=== PATIENT | male | born 1945 | race Caucasian/White ===

== ENCOUNTER 2017-08-13 07:33 | Outpatient (CLI) | payer MEDICARE, BC | END 2017-08-13 07:34 | disposition home or self-care (01) | LOC: BICULT 07:33 | PROVIDERS: ATTEND Family Medicine | DX: Z13.6 Encounter for screening for cardiovascular disorders (principal) | CPT/HCPCS: 76775 ==

== ENCOUNTER 2018-01-17 09:23 | Outpatient (CLI) | payer MEDICARE, BC ==
--- NOTE | 2018-01-19 08:31 | EKG ---
Test Reason : PREOP Blood Pressure : / mmHG Vent. Rate : 062 BPM Atrial Rate : 062 BPM P-R Int : 240 ms QRS Dur : 108 ms QT Int : 394 ms P-R-T Axes : 052 -21 016 degrees QTc Int : 399 ms Sinus rhythm with 1st degree A-V block Otherwise normal ECG When compared with ECG of 06-FEB-2012 13:09, ND interval has increased T wave amplitude has increased in Anterior leads Confirmed by JÚNIOR PERDUE ([id number]) on 01/19/2018 8:30:53 AM Referred By: ANA CRISTINA Confirmed By:JÚNIOR PERDUE
== END 2018-01-17 09:24 | disposition home or self-care (01) ==
LOC: EKG 09:23
PROVIDERS: ATTEND Urology
DX: N40.1 Benign prostatic hyperplasia with lower urinary tract symptoms (principal)
CPT/HCPCS: 93005; 93010

== ENCOUNTER 2018-01-21 14:11 | Outpatient (CLI) | payer MEDICARE, BC ==
[2018-01-21 15:37] LABS: Bilirubin Negative (Negative); Blood, Urine Negative (Negative); Clarity CLEAR (Clear); Glucose, Urine (Dipstick) Negative (Negative); Hemoglobin 14.9 g/dL (14.0-18.0); Leukocyte Negative (Negative); Mean Corpuscular HGB CONC 34.5 g/dL (32.0-36.0); Mean Corpuscular Hemoglobin 33.8 pg (27.0-31.0); Nitrite Negative (Negative); Platelet Count 195 thou/uL (130-400); Protein, Urine (Dipstick) Negative (Neg-Trace); RBC Distribution Width 10.7 % (11.5-14.5); Red Blood Cell (RBC) Count 4.41 mill/uL (4.70-6.10); Urobilinogen 0.2 mg/dL (0.2-1.0); White Blood Cell (WBC) Count 7.7 thou/uL (4.8-10.8)
[2018-01-21 15:41] LABS: Bacteria/HPF None Seen HPF (None Seen); Hyaline Casts/LPF 0-3 HYALINE CAST LPF (0-3 Hyaline); RBC/HPF 0-3 HPF (0-3); Squamous Epithelial None Seen HPF (0-3); WBC/HPF None Seen HPF (0-3)
[2018-01-21 15:57] LABS: Anion Gap 13 mmol/L (10-20); BUN (Urea Nitrogen) 20 mg/dL (8.4-25.7); Calc. Creatinine Clearance 0 mL/min (70-130); Calcium 9.5 mg/dL (7.8-10.44); Carbon Dioxide 25 mmol/L (23-31); Chloride 101 mmol/L (98-107); Estimated GFR-MDRD 78; Glucose 102 mg/dL (80-115); Sodium 135 mmol/L (136-145)
== END 2018-01-21 14:12 | disposition home or self-care (01) ==
LOC: LABBT 14:11
PROVIDERS: ATTEND Urology
DX: Z01.812 Encounter for preprocedural laboratory examination (principal); N40.1 Benign prostatic hyperplasia with lower urinary tract symptoms; R35.0 Frequency of micturition; R97.20 Elevated prostate specific antigen [PSA]; R39.14 Feeling of incomplete bladder emptying
CPT/HCPCS: 80048; 81001; 85027; 87086

== ENCOUNTER 2018-01-29 08:28 | Day surgery (SDC) | payer MEDICARE, BC ==
[2018-01-21 14:23] VITALS: BMI 28.6
[2018-01-29] MEDS ORDERED: Dexamethasone 4 mg/ml Vial ONE ×2 (09:20→09:21)
[2018-01-29] MEDS ORDERED: Levofloxacin 500 mg/D5W 100 ml Premix Bag ONE (09:20)
[2018-01-29] MEDS ORDERED: Fentanyl 100 MCG/2 ML VIAL ONE (10:37)
[2018-01-29] MEDS ORDERED: Lidocaine 1% PF 5 ML VIAL ONE (17:50)
[2018-01-29] MEDS ORDERED: PROPOFOL 200 MG/20 ML VIAL ONE ×2 (17:50)
[2018-01-29] MEDS ORDERED: Ondansetron PF 4 MG/2 ML Vial ONE (17:50)
[2018-01-29] MEDS ORDERED: ePHEDrine/0.9% NaCl/PF SYRINGE 50 mg/10 ml ONE (17:50)
--- NOTE | 2018-01-29 18:50 | OP ---
DATE OF PROCEDURE: 01/29/2018 PREOPERATIVE DIAGNOSIS: Benign prostatic hypertrophy. POSTOPERATIVE DIAGNOSIS: Benign prostatic hypertrophy. PROCEDURE: GreenLight laser vaporization of the prostate. SURGEON: Mary Jo Mercado M.D. ANESTHESIA: General with laryngeal mask airway. FINDINGS: Adequate opening up of the prostatic urethra using 128,179 joules. SPECIMEN: Prostate. BLOOD LOSS: Minimal. DRAINS REMAINING: A 20-[place] 2-way. COMPLICATIONS: No complications. INDICATIONS: The patient is a 72-year-old male who is followed in the office for BPH and already on maximum medications, but set up for definitive therapy. PROCEDURE IN DETAIL: He was brought into the room by Anesthesia, laid on the table in supine positio n. After receiving general anesthetic, his legs were placed in lithotomy position. His perineum was prepped and draped in sterile fashion. Using 22.5-[place] cystoscope and 30-degree lens, the urethra was traversed and the bladder inspected. The ureteral orifices were identified and preserved throug hout the case. The middle lobe was somewhat prominent and taken down with some chips noted. Power o f 80 was used for this and at the bladder neck. Power of 180 was used at the mid gland and near the veru again reduced power to 80. When the scope was removed initially, there was not a good stream, s o the bladder neck was reassessed and ensured to be open on the lateral edges and then the bladder wa s refilled ensuring that it was actually significantly full and when the scope was removed, a good st ream was noted. The scope was put back in and bladder decompressed. Hemostasis ensured. The scope was removed a final time and a 20-[place] catheter was placed to gravity. The patient tolerated the p rocedure well and was awakened and transferred to PACU in stable condition.
== END 2018-01-29 14:00 | disposition home or self-care (01) ==
LOC: SDC 08:28
PROVIDERS: ATTEND Urology
PROC: 0V508ZZ Destruction of Prostate, Via Natural or Artificial Opening Endoscopic (ICD-10-PCS; principal; 2018-01-29)
DX: N40.1 Benign prostatic hyperplasia with lower urinary tract symptoms (principal); R35.0 Frequency of micturition; R35.1 Nocturia; R39.11 Hesitancy of micturition; R39.14 Feeling of incomplete bladder emptying; I10 Essential (primary) hypertension; E03.9 Hypothyroidism, unspecified; E78.5 Hyperlipidemia, unspecified; N52.9 Male erectile dysfunction, unspecified; Z87.891 Personal history of nicotine dependence; Z79.82 Long term (current) use of aspirin; Z79.899 Other long term (current) drug therapy
CPT/HCPCS: 88305; J1100; J1956; J2001; J2405; J2704; J3010

== ENCOUNTER 2019-08-12 14:46 | Outpatient (CLI) | payer MEDICARE, BC ==
[~2019-08-12 14:46] MED LIST: Iopamidol-370 76% 500 ML 1 ML ONE
--- NOTE | 2019-08-12 16:31 | CT ---
CT abdomen and pelvis without and with IV contrast HISTORY: Hematuria. Incomplete bladder emptying. FINDINGS: There are 3 tiny nonspecific subpleural nodules at the partially visualized right lung base . Each renal collecting system, ureter, and urinary bladder are decompressed without stone apparent. No filling defects are evident within the urinary system on the delayed images. Small lobular homogeneous fluid density structures at the left renal hilum slightly effacing the left renal calyces. No solid masses are apparent. There is calcification within the arterial structures. No evidence of bowel obstruction or inflammation. Degenerative changes throughout the lumbar spine. IMPRESSION : No acute urinary tract abnormalities are demonstrated. Incidental note of parapelvic cysts of the lef t kidney. Atherosclerosis.
== END 2019-08-12 14:47 | disposition home or self-care (01) ==
LOC: BICCT 14:46
PROVIDERS: ATTEND Urology
DX: R31.29 Other microscopic hematuria (principal); R97.20 Elevated prostate specific antigen [PSA]; R39.14 Feeling of incomplete bladder emptying; N28.1 Cyst of kidney, acquired; I70.90 Unspecified atherosclerosis
CPT/HCPCS: 74178; Q9967

== ENCOUNTER 2019-10-22 13:02 | Outpatient (CLI) | payer MEDICARE, BC ==
--- NOTE | 2019-10-22 14:44 | MRI ---
EXAM: MRI of the pelvis/prostate without and with contrast HISTORY: elevated PSA COMPARISON: None TECHNIQUE: Multiplanar multisequence MR images were obtained of the pelvis without and with IV contra st. Evaluation of this exam was performed with a [employer] workstation. FINDINGS: Prostate: There is minimal hypertrophy of the central gland of the prostate. Prostate volume is estim ated at 10 mL. In the posterior mid gland of the prostate extending from the left the right aspect of the prostate, there is a region demonstrating low T2 signal. This demonstrates restricted diffusio n and low signal on the ADC map in the peripheral zone and measures approximately 3.1 cm in length. Abnormal early enhancement is also seen in this location. Seminal vesicles: Intact without abnormality Neurovascular bundles: Intact but the bilateral neurovascular bundles are in the vicinity of the low T2 signal lesion described above Pelvic lymph nodes: No pelvic adenopathy Other visualized intrapelvic structures: Unremarkable Osseous structures: No marrow signal abnormality IMPRESSION: PI-RADS Category 5-very high likelihood that a clinically significant cancer is present.
== END 2019-10-22 13:03 | disposition home or self-care (01) ==
LOC: TBSIIMAG 13:02
PROVIDERS: ATTEND Urology
DX: Z12.5 Encounter for screening for malignant neoplasm of prostate (principal); R97.20 Elevated prostate specific antigen [PSA]
CPT/HCPCS: 72197; 82565